=== PATIENT | female | born 2000 | race Hispanic/Latino ===

== ENCOUNTER 2022-10-27 05:54 | Emergency (ER) | payer SELFPAY ==
[~2022-10-27] VITALS: Ht 152.4 cm; Wt 65.3 kg
[2022-10-27] MEDS ORDERED: MUCINEX DM ER1 EACH PO (06:24)
[2022-10-27] MEDS ORDERED: DEXAMETHASONE SOD PHOS 10 MG/1 ML VIAL IM ONE ×2 (06:30→06:45)
[2022-10-27] MEDS ORDERED: DEXAMETHASONE SOD PHOS 10 MG/1 ML VIAL ONE (06:46)
== END 2022-10-27 06:47 | disposition home or self-care (01) ==
LOC: ER 06:00
DX: R05.9 Cough, unspecified (principal); B34.9 Viral infection, unspecified; R09.89 Other specified symptoms and signs involving the circulatory and respiratory systems
CPT/HCPCS: 99282; J1100